=== PATIENT | female | born 1995 | race African-American/Black ===

== ENCOUNTER 2018-11-20 14:27 | Emergency (ER) | payer OTHER ==
--- NOTE | 2018-11-20 15:08 | EDPHY ---
H & P Time Seen by Provider: 11/20/18 15:04 HPI/ROS: Chief complaint. Vaginal cyst HPI. Patient is a 23-year-old female presents with painful swelling to the left labia. Symptoms been present 5 days. Worse pain and swelling the last 2 days. She has a history of same symptoms before prior requiring incision and drainage. She has a history of MRSA infections. Otherwise no fever, chest discomfort trouble breathing, abdominal pain. No vaginal discharge. No urinary symptoms ROS 10 systems were reviewed and negative with the exception of the elements mentioned in the history of present illness Past Medical/Surgical History: MRSA Social History: Single, nonsmoker, no alcohol Smoking Status: Never smoked Physical Exam: General Appearance: Alert pleasant well-developed female mild distress vital signs are stable Eyes: Pupils equal and round no pallor or injection. ENT, Mouth: Mucous membranes are moist. Respiratory: There are no retractions, lungs are clear to auscultation. Cardiovascular: Regular rate and rhythm. Gastrointestinal: Abdomen is soft and nontender, no masses, bowel sounds normal. Neurological: Awake and alert, sensory and motor exams grossly normal. Skin: On the left mid labia there is a 1 x 1.5 cm cyst. Tender to palpation. Fluctuant. Musculoskeletal: Neck is supple nontender. Extremities symmetrical, full range of motion. Psychiatric: Patient is oriented X 3, there is no agitation. Constitutional: Initial Vital Signs Temperature (C) 37.3 C 11/20/18 14:41 Heart Rate 83 11/20/18 14:41 Respiratory Rate 16 11/20/18 14:41 Blood Pressure 131/72 H 11/20/18 14:41 O2 Sat (%) 97 11/20/18 14:41 O2 Delivery Mode Room Air Allergies/Adverse Reactions: No Known Allergies Allergy (Unverified 11/20/18 14:40) Home Medications: Medication Instructions Recorded Sulfamethox/Tmp 800/160 mg 1 tab PO BID #14 tab 11/20/18 [Bactrim Ds] Medical Decision Making Procedures: Procedure incision and drainage of abscess. 1% lidocaine with epinephrine is infiltrated into the cyst. It is incised with 11. Blade. Copious pus is drained. The cavity is probed to break up loculations. It is irrigated with normal saline. Procedure performed by me. 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 On re-evaluation patient is stable. She and I discussed treatment plan including criteria for return importance of follow-up further evaluation. She expresses understanding and agreement Differential Diagnosis: Labial abscess. Likely Bartholin's cyst. History of MRSA. Departure - Departure Disposition: Home, Routine, Self-Care Clinical Impression: Bartholin cyst Condition: Good Instructions: Bartholin Cyst (ED), Incision and Drainage (ED) Additional Instructions: Warm compresses to sore area 3 times daily next 2 days. It will drain over the next 1-2 days so Use Kotex pad. Bactrim as antibiotic Return worsening symptoms. Recheck in 2-3 days if not improvement Referrals: Demetra Diallo DO [Doctor of Osteopathy] - 2-3 days, if not improved Prescriptions: Sulfamethox/Tmp 800/160 mg [Bactrim Ds] 1 tab PO BID #14 tab
[2018-11-20 16:00] VITALS: BP 131/91
== END 2018-11-20 16:03 | disposition home or self-care (01) ==
DX: N75.0 Cyst of Bartholin's gland (principal)